=== PATIENT | female | born 1940 | race Caucasian/White ===

== ENCOUNTER 2022-06-02 14:00 | Outpatient (RCR) | payer MEDICARE, BC, SELFPAY ==
--- NOTE | 2022-04-12 15:23 | PT.OPDNX ---
[facility] Daily [facility] PT [facility] Daily Note Start: 02/15/22 07:37 Freq: Status: Active Protocol: Document 04/12/22 12:13 MELLISA (Rec: 04/12/22 12:57 MELLISA [id number]) E-signed By Gila Almanzar, PT PT OP Daily Progress Note Visit Information Note Type Recert/Progress Note Visit Number 5 Insurance Authorized Visits - Physician Authorized Visits Eval and treat Insurance Information Recert Due Date 06/11/22 Insurance Name Medicare B,Blue Cross/Blue Shield Medical Diagnosis Unsteady gait Treating Diagnosis Impaired gait, impaired balance, gross LE weakness, L cervical/head pain Referring MD Destinee Subjective Subjective Patient reports balance is gradually improving with exercises at home and no reports of knee pain today. Head pain is non-existent in the past week. Patient had follow up with MD with considerable improvement with bruising of B forearms. She continues to be consistent with HEP and use of 4WW. Objective Other/Pertinent Objective Gait: ambulates with 4WW, slight improvement in sylvia, wide NEGRITA, good heel strike, less reliance on 4WW Sit<>stand transfers: improvement in stand however poor eccentrics with lowering back down to table LE Strength (R/L): -Knee Ext: R: 4/5, L: 4/5 -Knee Flex: R: 4/5, L: 4/5 -Hip Abd: R: 4+/5, L: 4-/5 -Hip Ext: R: 4/5, L: 4-/5 -Hip Flx: R: 4/5, L: 4-/5 Sensation: intact to light touch throughout B LE Functional Test Performed & Score HILL/56 TUst trial-14.2 sec, 2nd trial-12.6 sec Patient Instructed in Risks/Benefits Yes: N/A Therapeutic Exercise Therapeutic Exercise Minutes (minutes) 25 Therapeutic Exercise: To Restore Hooklying glut squeeze 5x5 sec Functional Status hold Bridge: minimal lift achieved today 2x5 SLR x5 B: more difficult L LE Sidelying clamshell x10 B Sit to stand x5 Neuromuscular Re-Ed Neuromuscular Reeducation Minutes ( 14 minutes) Neuromuscular Reeducation Comments Parallel bars with mirror cuing: -ellen (tactile cuing for glut med activation L LE in order to improve pelvofemoral control with stance) -tandem balance -standing balance (NBOS) with head turns L/R and up/down: no LOB today -toe tap to 8 step focusing on pelvofemoral control, more difficult L LE with trendelenburg stance noted Treatment Minutes Timed Code Treatment Minutes 39 Total Treatment Time 39 Billing Units Neuromuscular Reeducation Units 1 Therapeutic Exercise Units 2 Assessment/Impression Assessment/Impression Patient demonstrating continued improvement in static balance however lacks adequate dynamic balance and strength, particularly with L LE. She continues to demonstrate trendelenburg stance on L. Session also focused on targeted glut med strengthening in order to further enhance pelvic stability with exercises she can perform at home. Considerably more difficult to perform strengthening exercises on L LE however no pain noted. She continues to remain appropriate for skilled PT to continue to improve gait mechanics and reduce fall risk. Plan of Care Physical Therapy Goals In 4 weeks (02/16/22) Pt will be able to bend and lift household items from the floor to shoulder height to perform ADLs without fear of falling MET Pt will report 25-50% improvement in balance to reduce risk of falling MET Goals updated to 06/11/22 Pt will demonstrate consistent HEP compliance to ensure progress in reaching established goals during course of care. Progressing towards Pt will exhibit 8 point improvement in HILL Balance score to demonstrate functional improvement and reduction in fall risk. 6 point improvement 04/12 Sit to stand from chair height 20 inches without use of hands on first try X 3 reps MET Pt will report 50-75% improvement in balance to reduce risk of falling progressing towards Daily Plan of Care Continue per POC Daily Plan of Care Comments Continue to progress dynamic balance Recertification for additional 60 days with anticipated 4-6 more sessions Certification I Certify That: Therapy Services Provided, Therapy Plan Reviewed Recertification Information Initial Certification Date 01/28/22 Recertification Start Date 04/21/22 Recertification Due Date 06/11/22 Reasons to Continue Skilled Therapy Patient progressing well with 6 point improvement on HILL and overall marked improvement in static balance however dynamic balance and L LE strength continue to be patient's main deficits. She would be appropriate to continue PT for additional 60 days in order to reduce fall risk. Rehabilitation Potential Good Continued Plan of Care and Interventions Neuromuscular re-education, therapeutic exercise, gait training, therapeutic activity Provider Signature Shows Agreement With POC & Medical Necessity Physician Comment/Change Comment or Changes Physician NPI Number #
== END 2022-06-05 07:58 | disposition home or self-care (01) ==
PROVIDERS: PCP Internal Medicine; Visit Provider Internal Medicine
DX: R26.9 Unspecified abnormalities of gait and mobility (principal); Z51.89 Encounter for other specified aftercare
CPT/HCPCS: 97110; 97112; 97140

== ENCOUNTER 2023-07-04 15:09 | Emergency (ER) | payer MEDICARE, BC, SELFPAY ==
[2023-07-04] VITALS (8 sets, daily range): BP systolic 120–162; BP diastolic 61–86; PULSE 80–103; RESP 18–20; TEMP 36.9; O2SAT 96–98; BMI 34.1
--- NOTE | 2023-07-04 16:06 | ED.GENADULT ---
HPI - General Adult General Chief complaint: Arrhythmia/Palpitations Stated complaint: Irregular heartrate Time Seen by Provider: 07/04/23 16:06 History of Present Illness HPI narrative: Feels nauseous and has been having an irregular heartbeat and palpitations. Has a pacemaker . Lives at [facility] and the nurses recommended her to come 83-year-old woman presenting to the emergency department with complaint of irregular heartbeats. This has been going on over today. She was in otherwise usual state of health. No fever no shortness of breath no increased lower extremity edema no chest pain. No cough. She had a pacer placed on sure if it is a defibrillator, about 10 years ago for unsure her arrhythmia. These feelings of irregular beats about 3 or 4 per minute and the accompanying nausea is familiar. Does report a history of hypothyroid or at least receiving thyroid treatment. Does not recall that this is been checked in the last 6 months. Four months ago approximately it sounds as though had pacer checked out and everything was good. Sounds as though this was routine. Related Data Home Medications Medication Instructions Recorded Confirmed ranitidine HCl PO 03/15/22 02/03/23 aspirin 81 mg tablet,delayed 81 mg PO .Every other day 04/03/22 07/04/23 release donepezil 10 mg tablet 10 mg PO DAILY 02/03/23 07/04/23 Previous Rx's Medication Instructions Recorded doxazosin 1 mg tablet 1 mg PO .Bedtime #90 tabs 07/07/22 amlodipine 10 mg tablet 10 mg PO DAILY #30 tabs 10/27/22 atorvastatin 10 mg tablet 10 mg PO .Bedtime #30 tabs 10/27/22 levothyroxine 88 mcg tablet See Rx Instructions .Route 10/27/22 .COMPLEX #30 tabs metoprolol succinate 100 mg 100 mg PO DAILY #90 tabs 04/30/23 tablet,extended release 24 hr Allergies Allergy/AdvReac Type Severity Reaction Status Date / Time codeine Allergy Mild Nausea Verified 07/04/23 15:38 Penicillin Allergy Mild Rash Uncoded 02/03/23 11:48 topical ursula Allergy Mild Rash Uncoded 02/03/23 11:48 Review of Systems Status of ROS: Reports: 6 or more systems reviewed and unremarkable except as noted in History and [facility] Medical History Pelvic pain ?R10.2 - Pelvic and perineal pain (ICD-10) Abdominal pain ?R10.9 - Unspecified abdominal pain (ICD-10) POLST (Physician Orders for Life-Sustaining Treatment) ?Z78.9 - Other specified health status (ICD-10) Hypertension ?I10 - Essential (primary) hypertension (ICD-10) History of renal calculi (2018) ?Z87.442 - Personal history of urinary calculi (ICD-10) History of poliomyelitis ?Z86.12 - Personal history of poliomyelitis (ICD-10) History of malignant neoplasm of skin ?Z85.828 - Personal history of other malignant neoplasm of skin (ICD-10) History of atrial fibrillation ?Z86.79 - Personal history of other diseases of the circulatory system (ICD-10) Surgical History History of cataract surgery ?Z98.49 - Cataract extraction status, unspecified eye (ICD-10) History of total bilateral knee replacement ?Z96.653 - Presence of artificial knee joint, bilateral (ICD-10) History of tonsillectomy and adenoidectomy ?Z90.89 - Acquired absence of other organs (ICD-10) History of permanent cardiac pacemaker placement (05/27/18) ?Z95.0 - Presence of cardiac pacemaker (ICD-10) History of coronary artery stent placement ?Z95.5 - Presence of coronary angioplasty implant and graft (ICD-10) History of carpal tunnel release (08/17/16) ?Z98.890 - Other specified postprocedural states (ICD-10) History of appendectomy ?Z90.49 - Acquired absence of other specified parts of digestive tract (ICD-10) Social History Smoking Status: Never smoker Exam Narrative: Exam Narrative: Pleasant. NAD. Accompanied by daughter. She defers to her daughter for occasional answers to questions. She is breathing easily. Lungs are clear. Neck is supple without JVD. Cranial nerves 2-12 intact. Speaking fluidly easily. Abdomen is overweight soft subtly tender in the left mid abdomen. No peritoneal signs. No masses appreciated. Heart my auscultation appears to be in a regular rate and rhythm. I do not hear any ectopy during the time that I listened. Nor did I palpate any unusual beats. Lower extremities with some light compression stockings appear to be without edema. She is well-perfused. Const: Vital Signs, click to edit/add: Vital Signs - 24 hr 07/04/23 15:31 07/04/23 16:30 07/04/23 17:00 Temperature 98.5 F Pulse Rate Pulse Rate [Right Pulse Oximeter] 97 Respiratory Rate 18 20 20 Blood Pressure Blood Pressure [Ri ght Upper Arm] 162/71 H 120/86 136/61 Pulse Oximetry 98 96 Oxygen Delivery Me thod Room Air Room Air 07/04/23 17:32 07/04/23 17:45 07/04/23 18:16 Temperature Pulse Rate 80 89 103 H Pulse Rate [Right Pulse Oximeter] Respiratory Rate Blood Pressure Blood Pressure [Ri ght Upper Arm] Pulse Oximetry 97 98 97 Oxygen Delivery Me thod 07/04/23 18:18 07/04/23 18:30 Temperature Pulse Rate 90 88 Pulse Rate [Right Pulse Oximeter] Respiratory Rate Blood Pressure 156/62 H Blood Pressure [Ri ght Upper Arm] Pulse Oximetry 97 96 Oxygen Delivery Me thod Documenting provider has reviewed patient's vital signs: yes Course Vital Signs Vital signs: Initial Vital Signs Temperature 98.5 F 07/04/23 15:31 Temperature Source Temporal Artery Scan 07/04/23 15:31 Pulse Rate 97 07/04/23 15:31 Respiratory Rate 18 07/04/23 15:31 Blood Pressure 162/71 H 07/04/23 15:31 Blood Pressure Mean 101 07/04/23 15:31 Blood Pressure Position Sitting 07/04/23 15:31 Pulse Oximetry 98 07/04/23 15:31 Oxygen Delivery Method Room Air 07/04/23 15:31 Vital Signs Temperature 98.5 F 07/04/23 15:31 Pulse Rate 97 07/04/23 15:31 Respiratory Rate 18 07/04/23 15:31 Blood Pressure 162/71 H 07/04/23 15:31 Pulse Oximetry 98 07/04/23 15:31 Oxygen Delivery Method Room Air 07/04/23 15:31 Temperature 98.5 F 07/04/23 15:31 Pulse Rate 88 07/04/23 18:30 Respiratory Rate 20 07/04/23 17:00 Blood Pressure 156/62 H 11/15/23 18:18 Pulse Oximetry 96 07/04/23 18:30 Oxygen Delivery Method Room Air 07/04/23 16:30 Medications Administered Medications: Discontinued Medications Generic Name Dose Route Start Last Admin Trade Name Arq PRN Reason Stop Dose Admin Sodium Chloride 1,000 mls @ 1,000 mls/hr 07/04/23 16:21 07/04/23 17:47 0.9 % Sodium Chloride 1000 Ml IV 07/04/23 17:20 Infused .Q1H ONE Infusion Medical Decision Making MDM Narrative Medical decision making narrative: Certainly may be experiencing some ectopic beats. Have not demonstrated any here at this time. I have reviewed EKG. Will be monitoring on mental health assistant for a while. Could also be evolution of gastrointestinal issue. Possibly ischemic cardiovascular event. Possibly premature atrial or premature ventricular contractions Will be monitoring and checking labs. IV hydration can often help with arrhythmia or nausea. She will be receiving this as well. Labs are quite reassuring. No further events on monitor. Overall feels well and requesting departure. Discussed potential collection of urinalysis as has chronic urgency and frequency. Has not had dysuria. Nausea may be isolated to these palpitations that she feels. See patient discharge plan. Lab Data Lab results reviewed: Yes I reviewed the patient's lab results Labs: Lab Results 07/04/23 Range/Units 16:40 WBC 8.14 (4.50-11.00) K/uL RBC 4.75 (4.00-5.20) m/uL Hgb 14.4 (12.0-16.0) gm/dL Hct 43.9 (33.0-51.0) % MCV 92 (80-100) fL MCH 30 (26-34) pg MCHC 33 (32-36) gm/dL RDW Coeff of Donna 13.0 (11.5-15.5) % Plt Count 228 (140-440) K/uL Neut % (Auto) 77.5 H (42.0-72.0) % Lymph % (Auto) 13.9 L (20-44) % [place] % (Auto) 7.6 (0.0-11.0) % Eos % (Auto) 0.1 (0.0-7.0) % Baso % (Auto) 0.2 (0.0-3.0) % Neut # (Auto) 6.30 (1.7-7.0) K/uL Lymph # (Auto) 1.10 (0.90-2.90) K/uL [place] # (Auto) 0.60 (0.00-0.90) K/UL Eos # (Auto) 0.01 (0.00-0.50) K/uL Baso # (Auto) 0.02 (0.00-0.30) K/uL Abs Immat Gran (auto) 0.06 (0.00-0.30) K/uL Imm/Tot Granulo (auto) 0.7 % Sodium 139 (135-149) mmol/L Potassium 4.0 (3.6-5.1) mmol/L Chloride 104 (96-114) mmol/L Carbon Dioxide 26 (20-32) mmol/L Anion Gap 9 (7-15) mEq/L BUN 22 (7-30) mg/dL Creatinine 1.0 (0.5-1.5) mg/dL Estimated Creat Clear 39.03 Estimated GFR 56 ml/min Glucose 121 H (60-115) mg/dL Calcium 9.0 (8.4-10.6) mg/dL Troponin I < 0.01 L (0.01-0.04) ng/mL C-Reactive Protein 0.6 (0.5-1.0) mg/dL NT-Pro-B Natriuret Pep 360 pg/mL TSH 2.250 (0.270-4.20) uIU/mL ECG Data Attestation: I personally reviewed and interpreted this ECG as follows: (Normal sinus with nonspecific sinus arrhythmia. Rate of 93. No ischemic changes appreciated) Discharge Plan Discharge Clinical Impression: Heart palpitations Patient Disposition: Home w/ Parent or Adult Condition: Improved Additional Instructions: Stay well-hydrated. Return for increasing and persistent palpitations particularly if accompanied by lightheadedness or chest pain. If you seem to be having symptoms that you would correlate with a urinary tract infection, might want to check a urinalysis at your place of residence. Might be helpful to query with [facility] your pacemaker; a call to your cardiology clinic. Unfortunately I can not do that here in a timely manner. Prescriptions: No Action ranitidine HCl PO aspirin 81 mg tablet,delayed release (DR/EC) 81 mg PO .Every other day donepezil 10 mg tablet 10 mg PO DAILY doxazosin 1 mg tablet 1 mg PO .Bedtime Qty: 90 2RF amlodipine 10 mg tablet 10 mg PO DAILY Qty: 30 0RF levothyroxine 88 mcg tablet See Rx Instructions .ROUTE .COMPLEX Qty: 30 0RF Dose Instruction: TAKE 1 TABLET EVERY DAY Rx Instructions: TAKE 1 TABLET EVERY DAY atorvastatin 10 mg tablet 10 mg PO .Bedtime Qty: 30 0RF metoprolol succinate 100 mg tablet extended release 24 hr 100 mg PO DAILY Qty: 90 0RF Follow Up/Referrals: Yuniel Felipe MD [Primary Care Provider] - Stand Alone Forms: [facility] Info Instructions
[2023-07-04] MEDS: 0.9 % SODIUM CHLORIDE 1000 ml 1,000 ML IV (16:37)
[2023-07-04 17:13] LABS: Chloride* 104 mmol/L (96-114); Sodium* 139 mmol/L (135-149)
[2023-07-04 17:16] LABS: Anion Gap 9 mEq/L (7-15); Blood Urea Nitrogen* 22 mg/dL (7-30); Carbon Dioxide* 26 mmol/L (20-32); Est. Creatinine Clearance* 39.03; Estimated Glomerular Filt Rate 56 ml/min
[2023-07-04 17:17] LABS: Glucose* 121 mg/dL (60-115)
[2023-07-04 17:19] LABS: C Reactive Protein* 0.6 mg/dL (0.5-1.0)
[2023-07-04 17:24] LABS: Basophils Absolute Auto 0.02 K/uL (0.00-0.30); Basophils Percent Auto 0.2 % (0.0-3.0); Eosinophils Absolute Auto 0.01 K/uL (0.00-0.50); Eosinophils Percent Auto 0.1 % (0.0-7.0); Hematocrit 43.9 % (33.0-51.0); Hemoglobin* 14.4 gm/dL (12.0-16.0); Immature Granulocytes Abs Auto 0.06 K/uL (0.00-0.30); Immature Granulocytes Pct Auto 0.7 %; Lymphocytes Percent Auto 13.9 % (20-44); Mean Corpuscular HGB Conc 33 gm/dL (32-36); Mean Corpuscular Hemoglobin 30 pg (26-34); Mean Corpuscular Volume 92 fL (80-100); Monocytes Percent Auto 7.6 % (0.0-11.0); Neutrophils Percent Auto 77.5 % (42.0-72.0); Platelet Count* 228 K/uL (140-440); Red Blood Count 4.75 m/uL (4.00-5.20); White Blood Count* 8.14 K/uL (4.50-11.00)
[2023-07-04 17:26] LABS: Slide Review Reflex No
[2023-07-04 17:40] LABS: NT Pro B Type NatriureticPept* 360 pg/mL; Troponin I* < 0.01 ng/mL (0.01-0.04)
== END 2023-07-04 18:37 | disposition home or self-care (01) ==
PROVIDERS: Emergency Provider Family Medicine; PCP Internal Medicine
DX: R00.2 Palpitations (principal)
CPT/HCPCS: 36415; 80048; 83880; 84443; 84484; 85025; 86140; 93005; 99284; J7030